=== PATIENT | female | born 1975 | race Caucasian/White ===

== ENCOUNTER 2020-02-06 17:46 | Emergency (ER) | payer SELFPAY ==
[~2020-02-06] VITALS: Ht 165.1 cm; Wt 75.9 kg
[2020-02-06 17:52] VITALS: Ht 165.1 cm; Wt 75.9 kg
[2020-02-06] MEDS ORDERED: ZOLOFT100 MG PO (18:03)
[2020-02-06] MEDS ORDERED: NORVASC5 MG PO (18:03)
[2020-02-06] MEDS ORDERED: HYDROCHLOROTHIA50 MG PO (18:04)
[2020-02-06 19:20] LABS: BASOPHILS 0.4 % (0-2); EOSINOPHILS 2.4 % (0-7); HEMATOCRIT 39.5 % (36.0-48.0); HEMOGLOBIN 13.1 g/dL (12-16); IMMATURE GRANULOCYTES 0.3 % (0-5); LYMPHOCYTES 25.4 % (15-50); MCH 29.4 pg (26.0-34.0); MCHC 33.2 g/dL (31.0-37.0); MCV 88.8 fL (80.0-100.0); MEAN PLATELET VOLUME 9.4 fL (7.4-10.4); MONOCYTES 7.4 % (2-11); NEUTROPHILS 64.1 % (40-80); PLATELET COUNT 196 10x3/uL (130-400); RBC 4.45 10x6/uL (4.00-5.40); RDW 15.3 % (11.5-14.5)
[2020-02-06 19:33] LABS: APTT 30.4 SECONDS (22.8-39.4); INR 1.02 (0.85-1.17); PROTIME 13.4 SECONDS (11.6-15.0)
[2020-02-06 19:37] LABS: CALC OSMOLALITY 277 mosm/kg (275-300); CALCIUM 8.8 mg/dL (8.5-10.1); CARBON DIOXIDE 22.6 mmol/L (21.0-32.0); CHLORIDE - SERUM 108 mmol/L (98-107); CREATININE - SERUM 0.9 mg/dL (0.6-1.3); GLUCOSE 93 mg/dL (74-106); POTASSIUM - SERUM 3.5 mmol/L (3.5-5.1); SODIUM 140 mmol/L (136-145); UREA NITROGEN 10 mg/dL (7-18); eGFR NON AFRICAN AMERICAN 72 mL/min (90-120)
[2020-02-06 19:53] LABS: ALBUMIN 3.3 g/dL (3.4-5.0); ALKALINE PHOSPHATASE 30 U/L (30-120); ALT (SGPT) 15 U/L (10-68); CKMB 0.4 U/L (0.0-3.6); CREATINE KINASE 51 UL (21-215); PRO BNP 181 pg/mL (0-125); PROTEIN - SERUM 6.5 g/dL (6.4-8.2)
[2020-02-06 19:54] LABS: TROPONIN-I < 0.017 ng/mL (0.000-0.060)
[2020-02-06 21:10] LABS: C-REACTIVE PROTEIN < 0.2 mg/dL (0.0-0.9); FERRITIN 13 ng/mL (3-244)
[2020-02-06] MEDS ORDERED: ALBUTEROL SULF8.5 GM INH (22:30)
[2020-02-06] MEDS ORDERED: ZPAK PO (22:30)
[2020-02-06] MEDS ORDERED: DECADRON4 MG PO (22:30)
[2020-02-06] MEDS ORDERED: TESSALON PERLE100 MG PO (22:30)
[2020-02-06 23:00] VITALS: BP 122/78
== END 2020-02-06 23:10 | disposition home or self-care (01) ==
LOC: D.ER 17:46
PROVIDERS: Emergency Medicine; Family Medicine
DX: Z20.828 Contact with and (suspected) exposure to other viral communicable diseases (principal); J44.1 Chronic obstructive pulmonary disease with (acute) exacerbation; I10 Essential (primary) hypertension; K21.9 Gastro-esophageal reflux disease without esophagitis; Z72.0 Tobacco use

== ENCOUNTER 2020-10-17 14:45 | Outpatient (CLI) | payer OTHER ==
[2020-02-06 17:52] VITALS: BMI 27.8
[~2020-10-17 14:45] MED LIST: ALBUTEROL SULF8.5 GM INH; DECADRON4 MG PO; HYDROCHLOROTHIA50 MG PO; NORVASC5 MG PO; TESSALON PERLE100 MG PO; ZOLOFT100 MG PO; ZPAK PO
== END 2020-10-17 23:59 | disposition home or self-care (01) ==
LOC: D.MAMMO 14:45
PROVIDERS: ATTEND Emergency Medicine
DX: Z12.31 Encounter for screening mammogram for malignant neoplasm of breast (principal)

== ENCOUNTER 2020-11-02 18:26 | Emergency (ER) | payer OTHER ==
[~2020-11-02] VITALS: Ht 165.1 cm; Wt 113.6 kg
[2020-11-02 18:43] VITALS: Ht 165.1 cm; Wt 113.6 kg
[2020-11-02 19:42] LABS: APTT 29.8 SECONDS (22.8-39.4); INR 1.03 (0.85-1.17); PROTIME 12.5 SECONDS (11.6-15.0)
[2020-11-02 19:43] LABS: CALC OSMOLALITY 283 mosm/kg (275-300); CARBON DIOXIDE 24.3 mmol/L (21.0-32.0); CHLORIDE - SERUM 102 mmol/L (98-107); GLUCOSE 102 mg/dL (74-106); POTASSIUM - SERUM 3.2 mmol/L (3.5-5.1); SODIUM 142 mmol/L (136-145); UREA NITROGEN 15 mg/dL (7-18); eGFR NON AFRICAN AMERICAN 64 mL/min (90-120)
[2020-11-02 19:52] LABS: BASOPHILS 0.7 % (0-2); EOSINOPHILS 1.3 % (0-7); HEMATOCRIT 42.6 % (36.0-48.0); HEMOGLOBIN 13.9 g/dL (12-16); MCHC 32.7 g/dL (31.0-37.0); MCV 85.8 fL (80.0-100.0); RBC 4.97 10x6/uL (4.00-5.40); RDW 18.6 % (11.5-14.5); WBC 13.4 10x3/uL (4.8-10.8)
[2020-11-02 20:11] LABS: ALBUMIN 4.2 g/dL (3.4-5.0); ALKALINE PHOSPHATASE 45 U/L (30-120); ALT (SGPT) 50 U/L (10-68); AMYLASE - SERUM 82 U/L (25-115); BILIRUBIN - TOTAL 0.24 mg/dL (0.2-1.3); CKMB 1.3 U/L (0.0-3.6); CREATINE KINASE 113 UL (21-215); LIPASE 143 U/L (73-393); PRO BNP 19 pg/mL (0-125); PROTEIN - SERUM 7.9 g/dL (6.4-8.2)
[2020-11-02 20:12] LABS: TROPONIN-I < 0.017 ng/mL (0.000-0.060)
[2020-11-02 20:28] LABS: PLATELET COUNT 283 10x3/uL (130-400)
[2020-11-02 20:44] LABS: HCG URINE NEGATIVE (NEGATIVE)
[2020-11-02 20:45] LABS: BACTERIA FEW HPF (<MOD); BILIRUBIN NEGATIVE (NEGATIVE); KETONE NEGATIVE mg/dL (< 1+); NITRITE NEGATIVE (NEGATIVE); PH 6.5 (5.0-8.0); SQUAMOUS EPITHELIAL 3 HPF (0-4); UROBILINOGEN NORMAL mg/dL (< 2); WHITE CELLS - URINE 3 HPF (0-4)
[2020-11-02 20:53] LABS: UDS - AMPHET NEGATIVE QUAL (NEGATIVE); UDS - BARB NEGATIVE QUAL (NEGATIVE); UDS - BENZO NEGATIVE QUAL (NEGATIVE); UDS - COCAINE NEGATIVE QUAL (NEGATIVE); UDS - OPIATE POSITIVE QUAL (NEGATIVE); UDS - PCP NEGATIVE QUAL (NEGATIVE); UDS - THC POSITIVE QUAL (NEGATIVE)
[2020-11-02 23:09] LABS: SARS-CoV-2 ANTIGEN NEGATIVE- SARS-COV-2 (NEGATIVE)
[2020-11-03] MEDS ORDERED: ZOFRAN ODT4 MG/UDTAB PO (01:15)
[2020-11-03] MEDS ORDERED: NAPROSYN500 MG PO (01:15)
[2020-11-03] MEDS ORDERED: K-DUR20 MEQ PO (01:15)
[2020-11-03] MEDS ORDERED: TORADOL10 MG PO (01:28)
[2020-11-03 01:40] VITALS: BP 122/76
== END 2020-11-03 01:41 | disposition home or self-care (01) ==
LOC: D.ER 18:26
PROVIDERS: Emergency Medicine; Family Medicine
DX: G44.009 Cluster headache syndrome, unspecified, not intractable (principal); R11.2 Nausea with vomiting, unspecified; J02.9 Acute pharyngitis, unspecified; D72.829 Elevated white blood cell count, unspecified; E87.6 Hypokalemia; F12.10 Cannabis abuse, uncomplicated; F11.90 Opioid use, unspecified, uncomplicated; F10.129 Alcohol abuse with intoxication, unspecified; Y90.7 Blood alcohol level of 200-239 mg/100 ml; I10 Essential (primary) hypertension; K21.9 Gastro-esophageal reflux disease without esophagitis